=== PATIENT | female | born 1980 | race African-American/Black ===

== ENCOUNTER → 2016-11-02 | Day surgery (SDC) | payer OTHER ==
[~2016-11-02] MED LIST: ALOSETRON HCL0.5 MG PO; CREAM FOR ECZEMA EXT; NUVARING VAGIN1 EACH; OXTELLAR XR600 MG PO; VOLTAREN75 MG PO; ZYRTEC PO
--- NOTE | ~2016-11-02 | OR ---
Unit #: [id number] #: [id number] Patient: LUIS PARDO [id number] [address] [place], [place] [address] [id number] O MR#: [id number] NAME: LUIS PARDO ROOM: Date of Procedure: 11/02/2016 Admission Date: 11/02/2016 Surgeon: Gerardo Mendosa Jr., M.D. : 1980 Attending Physician: Gerardo Mendosa Jr., M.D. Primary Care Physician: Dc Tracey M.D. OPERATIVE REPORT INDICATIONS FOR PROCEDURE The patient is a 36-year-old black female, recently was worked up and noted to have evidence of lymphadenopathy both in the area of her mediastinum with enlarged thymus and both axillae and some in the abdomen. It was felt the patient could possibly have Hodgkin lymphoma or metastatic disease, and she is brought to the operating room at this time for right axillary node biopsies. The patient understands the procedure including the risks, including that of lymphedema, chronic pain, nerve injury, bleeding, and poor healing, and wound infection and consents. PREOPERATIVE DIAGNOSIS Lymphadenopathy, right axilla. POSTOPERATIVE DIAGNOSIS Lymphadenopathy, right axilla, noting multiple enlarged nodes at least a 1.5 to 2 cm in diameter. ANESTHESIA General with 0.5% Marcaine with epinephrine locally. PROCEDURE PERFORMED Right axillary node biopsy x3. DESCRIPTION OF PROCEDURE The patient was positioned in supine position. After being anesthetized, she was prepped and draped in routine fashion for right axillary node biopsy. A transverse incision was made over the right axilla approximately 4 inches in length. This was carried down through subcutaneous tissue after the area was locally blocked with 0.5% Marcaine with epinephrine. The incision was carried down into the deeper aspect of the axilla and there were multiple palpable enlarged lymph nodes. These were dissected free of the surrounding tissue in the least 3 areas and 3 lymph nodes were removed after hemoclipping vessels and lymphatics going into them. After they were removed, it was sent to pathology. Hemostasis was achieved with the Bovie cautery and after total hemostasis was noted, the deeper tissue was approximated with interrupted 3-0 Vicryl sutures. Subcutaneous tissue approximated with interrupted 3-0 Vicryl sutures. Skin edges approximated with stainless-steel skin clips and skin stapling device. Sterile dressings were applied externally. Estimated blood loss less than 20 mL. The patient received less than 1000 mL crystalloid solution during the procedure. Sponges and instrument counts were correct x3. No drains used. No complications. The patient was taken to the Unit #: [id number] #: [id number] Patient: [facility] recovery room with stable vital signs in satisfactory condition. Dictated by... Gerardo Mendosa Jr., M.D. JMB/natividad TD: 11/02/2016 16:04 JOB #: [id number] CC: Dc Tracey M.D. OPERATIVE REPORT Page 1 of 1 X Gerardo Mendosa MD X PROCEDURE OPERATIVE NOTE
== END | disposition home or self-care (01) ==
LOC: CSUR 05:35
DX: R59.0 Localized enlarged lymph nodes (principal); K58.9 Irritable bowel syndrome, unspecified; K21.9 Gastro-esophageal reflux disease without esophagitis; G40.909 Epilepsy, unspecified, not intractable, without status epilepticus; J45.909 Unspecified asthma, uncomplicated; K50.90 Crohn's disease, unspecified, without complications; F32.9 Major depressive disorder, single episode, unspecified; Z88.8 Allergy status to other drugs, medicaments and biological substances; Z79.899 Other long term (current) drug therapy; Z79.1 Long term (current) use of non-steroidal anti-inflammatories (NSAID); Z98.890 Other specified postprocedural states
CPT/HCPCS: 88305; J2250; J2405; J3010